=== PATIENT | male | born 1995 | race Caucasian/White ===

== ENCOUNTER 2024-05-21 20:33 | Emergency (ER) | payer OTHER, SELFPAY ==
[2024-05-21 20:35] VITALS: BP 132/82; PULSE 75; RESP 18; TEMP 36.7; O2SAT 98; BMI 26.6
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
--- NOTE | 2024-05-21 20:51 | XR_ITS ---
Examination: Hand, left 3 views Technique: Hand AP, oblique, lateral 3 views Date and time of exam: May 21, 20242024 hrs. Indications: Injury to the hand today, hand pain Findings: No acute fracture No dislocation No foreign body Impression: No acute fracture
== END 2024-05-21 22:25 | disposition home or self-care (01) ==
LOC: SERX 22:14
PROVIDERS: Emergency Provider Emergency Medicine
DX: S63.92XA Sprain of unspecified part of left wrist and hand, initial encounter (principal); Y04.8XXA Assault by other bodily force, initial encounter
CPT/HCPCS: 73130; 99283